=== PATIENT | female | born 1960 | race Caucasian/White ===

== ENCOUNTER 2017-03-10 20:33 | Emergency (ER) | payer BC, OTHER ==
[2017-03-10 20:54] VITALS: BP 125/74
--- NOTE | 2017-03-10 21:12 | UC ---
Throat Pain/Nasal Oscar HPI - HPI Summary HPI Summary: SIX DAYS OF SINUS CONGESTION PRESSURE, PRODUCTIVE COUGH, AND EAR PRESSURE. NO FEVER. MUCUS CHANGES FROM CLEAR TO THICK GREEN. - History of Current Complaint Chief Complaint: UCRespiratory Stated Complaint: COUGH Time Seen by Provider: 03/10/17 20:51 Hx Obtained From: Patient Hx Last Menstrual Period: 2005 Onset/Duration: Gradual Onset, Lasting Days, Still Present Severity: Mild Cough: Productive Associated Signs & Symptoms: Positive: Sinus Discomfort, Nasal Discharge - Epiglottits Risk Factors Epiglottis Risk Factors: Negative - Allergies/Home Medications Allergies/Adverse Reactions: Allergies Allergy/AdvReac Type Severity Reaction Status Date / Time environmenta. allergy Allergy Congestion Uncoded 03/10/17 20:54 Home Medications: Home Medications Guaifenesin/Pseudo 600/60(NF) [Mucinex D 600/60 (NF)] 1 PO PRN 03/10/17 [History ] PMH/Surg Hx/FS Hx/Imm Hx Previously Healthy: Yes Endocrine History Of: Denies: Diabetes, Thyroid Disease Cardiovascular History Of: Denies: Cardiac Disorders, Hypertension Respiratory History Of: Denies: COPD, Asthma GI/ History Of: Denies: Ulcer - Surgical History Surgical History: Yes Surgery Procedure, Year, and Place: hysterectomy 2005, B/L breast bx - Family History Known Family History: Negative: Respiratory Disease - Social History Occupation: Employed Full-time Lives: With Family Alcohol Use: None Substance Use Type: None Smoking Status (MU): Never Smoked Tobacco Review of Systems Constitutional: Negative Skin: Negative Eyes: Negative ENT: Nasal Discharge Respiratory: Cough Cardiovascular: Negative Gastrointestinal: Negative Genitourinary: Negative Motor: Negative Neurovascular: Negative Musculoskeletal: Negative Neurological: Negative Psychological: Negative All Other Systems Reviewed And Are Negative: Yes Physical Exam Triage Information Reviewed: Yes Appearance: No Pain Distress, Well-Nourished, Ill-Appearing - MILD Vital Signs: Initial Vital Signs Temp 97.9 F 03/10/17 20:47 Pulse 72 03/10/17 20:47 Resp 18 03/10/17 20:47 BP 125/74 03/10/17 20:47 Pulse Ox 99 03/10/17 20:47 Vital Signs Reviewed: Yes Eye Exam: Normal ENT: Positive: Nasal congestion, Nasal drainage, TM dull Dental Exam: Normal Neck exam: Normal Neck: Positive: Supple, Nontender, No Lymphadenopathy. Negative: Nuchal Rigidity, Tenderness @, Enlarged Nodes @ Respiratory Exam: Other - COUGH Respiratory: Positive: Chest non-tender, Lungs clear, Normal breath sounds, No respiratory distress, No accessory muscle use Cardiovascular Exam: Normal Cardiovascular: Positive: RRR, No Murmur, Pulses Normal, Brisk Capillary Refill Abdominal Exam: Normal Musculoskeletal Exam: Normal Neurological Exam: Normal Psychological Exam: Normal Skin Exam: Normal Throat Pain/Nasal Course/Dx - Differential Dx/Diagnosis Differential Diagnosis/HQI/PQRI: Sinusitis, Tonsillitis, URI Provider Diagnoses: SINUSITIS Discharge - Discharge Plan Condition: Stable Disposition: HOME Prescriptions: Amoxicillin/Clavulanate TAB* [Augmentin TAB 875*] 875 mg PO BID #20 tab Benzonatate CAP* [Tessalon 100 MG CAP*] 100 mg PO TID PRN #15 cap PRN Reason: Cough Patient Education Materials: Sinusitis (ED) Referrals: Shawn Liu MD [Primary Care Provider] -
== END 2017-03-10 21:10 | disposition home or self-care (01) ==
LOC: UCEAST 20:33
DX: J32.9 Chronic sinusitis, unspecified (principal); Z90.710 Acquired absence of both cervix and uterus
CPT/HCPCS: 99212; G0463

== ENCOUNTER 2019-05-31 10:38 | Emergency (ER) | payer OTHER ==
[2019-05-31 10:46] VITALS: BP 140/83
--- NOTE | 2019-05-31 11:03 | UC ---
Respiratory Complaint HPI - HPI Summary HPI Summary: Patient is a 59 year old woman, who present today to the urgent care with upper respiratory symptoms for past 2 weeks. She reports that she just returned visiting her family, and her grandchildren and her daughter have been sick with upper respiratory symptoms. She started with sore throat and now has the abrupt cough which is productive of greenish sputum. There is associated frontal headaches and she feels congestion in her head and chest. Does report postnasal drip Denies any new soap, detergent , cosmetics, food or a possible exposure. Denies any fever,chest pain or shortness of breath . Denies any abdominal pain , nausea or vomiting , diarrhea or constipation. She has been trying Mucinex and also got Flonase. She has environmental allergies and is being evaluated for that later this month. - History of Current Complaint Chief Complaint: UCRespiratory Stated Complaint: SINUS ISSUE CHEST CONGESTION Time Seen by Provider: 05/31/19 10:42 Hx Obtained From: Patient Hx Last Menstrual Period: 2005 Pain Intensity: 7 - Allergies/Home Medications Allergies/Adverse Reactions: Allergies Allergy/AdvReac Type Severity Reaction Status Date / Time environmenta. allergy Allergy Congestion Uncoded 05/31/19 10:46 Home Medications: Home Medications diphenhydrAMINE HCl [Sleep Aid] 1 tab PO DAILY 05/31/19 [History Confirmed 05/31] PMH/Surg Hx/FS Hx/Imm Hx - Additional Past Medical History Additional PMH: Past Medical History : Asthma, environmental allergies Past Surgical History: Hysterectomy and 2006, bilateral breast biopsies Family History : non contributory Social History : Daily alcohol, non smoker, no drug use. Previously Healthy: Yes - Surgical History Surgical History: Yes Surgery Procedure, Year, and Place: hysterectomy 2006, B/L breast bx - Family History Known Family History: Positive: Non-Contributory Negative: Respiratory Disease - Social History Alcohol Use: Daily Substance Use Type: None Smoking Status (MU): Never Smoked Tobacco Review of Systems All Other Systems Reviewed And Are Negative: Yes Constitutional: Positive: Negative Skin: Positive: Negative Eyes: Positive: Negative ENT: Positive: Sore Throat, Nasal Discharge, Sinus Congestion, Sinus Pain/ Tenderness Respiratory: Positive: Cough - Productive of greenish sputum Cardiovascular: Positive: Negative. Negative: Chest Pain Gastrointestinal: Positive: Negative Genitourinary: Positive: Negative Motor: Positive: Negative Neurovascular: Positive: Negative Musculoskeletal: Positive: Negative Neurological: Positive: Negative Psychological: Positive: Negative Is Patient Immunocompromised?: No Physical Exam - Summary Physical Exam Summary: Physical Exam: Const: Appears well. No signs of apparent distress present. Alert and oriented x 3. Musculo: Walks with a normal gait. Head/Face: Atraumatic, normocephalic on inspection. Eyes: EOMI and PERRLA in both eyes. Conjunctivae clear. No discharge noted ENT: Hearing normal, TM normal appearing bilaterally There is tenderness to palpation of the bilateral maxillary sinuses, more tender on the left side. There is tenderness of bilateral frontal and ethmoid sinuses sinus. There is pharyngeal erythema without any exudates . Uvula is midline. No significant cervical or submandibular lymphadenopathy noted. Respiratory: Respirations are unlabored. Lungs clear to auscultation bilaterally, no wheezing , rhonchi or rales noted . CVS: Regular rate and Rhythm, S1S2 normal , no murmurs identified. Extremities: Peripheral circulation is grossly normal. Pulses 2+ Abdomen : Soft non tender , nondistended , Bowel sounds present . No guarding , rebound tenderness or rigidity noted. Skin: No lesions or rash located on the upper extremities or on the lower extremities. Neuro: Cranial nerves II to XII intact, motor and sensory intact. DTR Intact bilaterally. Mood is normal. Affect is normal. Triage Information Reviewed: Yes Vital Signs: Initial Vital Signs Temp 98 F 05/31/19 10:43 Pulse 87 05/31/19 10:43 Resp 16 05/31/19 10:43 BP 140/83 05/31/19 10:43 Pulse Ox 100 05/31/19 10:43 Respiratory Course/Dx - Course Course Of Treatment: During the visit today, we discussed the findings consistent with sinusitis and further plan to treat her with antibiotics. I will prescribe the medication to the pharmacy . I will also prescribe Claritin-D for her allergies and congestion. She can continue to use Flonase that she has already got. Patient expressed understanding . - Differential Dx/Diagnosis Provider Diagnosis: Sinusitis Discharge - Sign-Out/Discharge Documenting (check all that apply): Patient Departure All imaging exams completed and their final reports reviewed: No Studies - Discharge Plan Condition: Stable Disposition: HOME Prescriptions: Amoxicillin/Clavulanate TAB* [Augmentin TAB 875*] 875 mg PO BID 14 Days #28 tab Loratadine/Pseudoephedrine [Claritin-D 24 Hour Tablet] 1 each PO DAILY 14 Days # 14 tab.er.24h Patient Education Materials: Rhinosinusitis (ED) Referrals: Shawn Liu MD [Primary Care Provider] - If Needed Additional Instructions: Please start taking the medication as prescribed to the pharmacy . Continue using Flonase Follow up with your primary care doctor in 1 week if needed Patients blood pressure slightly high in Urgent care today , plan follow up with PCP for better control Return to Urgent care / ER if symptoms get worse. - Billing Disposition and Condition Condition: STABLE Disposition: Home
== END 2019-05-31 11:23 | disposition home or self-care (01) ==
LOC: UCEAST 10:38
DX: J32.9 Chronic sinusitis, unspecified (principal)
CPT/HCPCS: 99212; G0463

== ENCOUNTER 2019-07-27 11:40 | Emergency (ER) | payer OTHER ==
[2019-07-27] MEDS ORDERED: Acetaminophen TAB* 325 MG PO ONE (12:26)
[2019-07-27] MEDS ORDERED: Ibuprofen TAB* 600 MG PO ONE (12:26)
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
[2019-07-27 13:15] VITALS: BP 149/95
== END 2019-07-27 13:14 | disposition home or self-care (01) ==
LOC: ED 11:40
DX: S16.1XXA Strain of muscle, fascia and tendon at neck level, initial encounter (principal); V49.40XA Driver injured in collision with unspecified motor vehicles in traffic accident, initial encounter; Y92.410 Unspecified street and highway as the place of occurrence of the external cause; J45.909 Unspecified asthma, uncomplicated; Z79.899 Other long term (current) drug therapy
CPT/HCPCS: 99282; A9270-GY